=== PATIENT | male | born 1985 | race Caucasian/White ===

== ENCOUNTER 2016-10-23 11:22 | Emergency (ER) | payer SELFPAY ==
[2016-10-23] MEDS ORDERED: 0.9 % SODIUM CHLORIDE 1,000 ML BAG IV ONE (11:46)
[2016-10-23 12:03] LABS: BASO % 0.9 % (0-6); EOS % 9.2 % (0-6); GRAN % 64.7 % (47-80); HEMATOCRIT 43.9 % (42.0-52.0); HEMOGLOBIN 15.3 gm/dl (14.0-18.0); LYMPH % 14.6 % (16-45); MEAN CELL VOLUME 85.7 fl (81-97); MEAN CORPUSCULAR HEMOGLOBIN 29.9 pg (27-33); MEAN CORPUSCULAR HGB CONC 34.9 g/dl (32-36); MEAN PLATELET VOLUME 10.2 fl (7.4-10.4); MONO % 10.6 % (0-9); PLATELET COUNT 264 K/uL (130-400); RED BLOOD COUNT 5.12 M/uL (4.40-5.70); RED CELL DISTRIBUTION WIDTH 12.6 % (11.5-14.5); WHITE BLOOD COUNT W/O DIFF 9.2 K/uL (4.2-12.2)
--- NOTE | 2016-10-23 12:04 | Emergency Department Record ---
History of Present Illness - General Chief Complaint: Passed out Stated Complaint: PASSED OUT Time Seen by Provider: 10/23/16 11:45 Source: Patient, Family Mode of Arrival: Ambulatory Limitations: No limitations - History of Present Illness Initial Comments: 31 yo male presents with an episode of passing out. He was getting up to answer the phone, jumped up fast and passed out. The event was witnessed by his girlfriend. No seizure activity. He recalls feeling like he was going to pass out just prior to the event. No incontinence. He hit the back of his head and now has a mild headache. He has passed out 2 times in the past. 8 years ago and 5 years ago. Both times then he passed out after getting up fast. He has a remote history of head injury at age 12. No seizure history. He was out late and had some alcohol last night but he does not believe it was excessive. No drugs. MD Complaint: [place] faint, Loss of consciousness Onset/Timin -: Hour(s) Prodromal Symptoms: Lightheaded Duration of Episode: 2 -: Minutes(s) Injuries Sustained Associated with Event: Head Current Symptoms: Headache - [place] Scale Eye Response: (4) Open spontaneously Motor Response: (6) Obeys commands Verbal Response: (5) Oriented [place] Total: 15 - Symptoms of Stroke Baseline State: Baseline State - Related Data Home Medications Medication Instructions Recorded Confirmed Last Taken No Home Med [NO HOME MEDS] 10/23/16 10/23/16 Unknown Allergies Allergy/AdvReac Type Severity Reaction Status Date / Time No Known Drug Allergies Allergy Verified 10/23/16 11:47 Travel Screening - Travel/Exposure Within Last 30 Days Have you traveled within the last 30 days?: No - Travel/Exposure Within Last Year Have you traveled outside the [place] in the last year?: No - Additonal Travel Details Have you been exposed to anyone with a communicable illness?: No - Travel Symptoms Symptom Screening: None Review of Systems Constitutional: Denies: Chills, Fever, Malaise, Night sweats, Weakness Eyes: Denies: Eye discharge, Eye pain, Photophobia, Vision change ENT: Denies: Congestion, Throat pain Respiratory: Denies: Cough Cardiovascular: Denies: Chest pain, Palpitations, Syncope Endocrine: Denies: Fatigue Gastrointestinal: Denies: Abdominal pain, Diarrhea, Nausea, Vomiting Genitourinary: Denies: Dysuria, Frequency, Hematuria Musculoskeletal: Denies: Arthralgia, Back pain, Joint swelling, Myalgia Skin: Denies: Bruising, Change in color Neurological: Reports: Headache (mild since event - fell and hit the back of hit head), Tremors. Denies: Abnormal gait, Confusion, Numbness, Paresthesias, Seizure, Tingling, Vertigo, Weakness Psychiatric: Denies: Anxiety Hematological/Lymphatic: Denies: Anemia, Blood Clots, Easy bleeding, Easy bruising Past Medical History - SOCIAL HISTORY Smoking Status: Never smoker Alcohol Use: Occassional Drug Use: None Drug Use Detail:: Marijuana - RESPIRATORY Hx Respiratory Disorders: No - CARDIOVASCULAR Hx Cardio Disorders: No - NEURO Comment:: TBI with associated surgery - GI Hx GI Disorders: No - Hx Genitourinary Disorders: No - ENDOCRINE Hx Endocrine Disorders: No - MUSCULOSKELETAL Hx Musculoskeletal Disorders: No - PSYCH Hx Psych Problems: No - HEMATOLOGY/ONCOLOGY Hx Hematology/Oncology Disorders: No Family Medical History Any Significant Family History?: Yes Family Hx Comment (NOT TO BE USED IN PLACE OF ITEMS BELOW): none Physical Exam - General General Appearance: Alert, Oriented x3, Cooperative, No acute distress Limitations: No limitations - Head Head exam: Atraumatic, Normocephalic, Normal inspection - Eye Eye exam: Normal appearance, PERRL, EOMI. negative: Conjunctival injection, Nystagmus, Periorbital swelling - ENT ENT exam: Normal exam, Mucous membranes moist Ear exam: Normal external inspection Nasal Exam: Normal inspection Mouth exam: Normal external inspection Teeth exam: Normal inspection Throat exam: Normal inspection - Neck Neck exam: Normal inspection, Full ROM. negative: Tenderness - Respiratory Respiratory exam: Normal lung sounds bilaterally. negative: Respiratory distress - Cardiovascular Cardiovascular Exam: Regular rate, Normal rhythm, Normal heart sounds - GI/Abdominal GI/Abdominal exam: Soft. negative: Distended, Guarding, Rigid, Tenderness - Rectal Rectal exam: Deferred - exam: Deferred - Extremities Extremities exam: Normal inspection, Full ROM, Normal capillary refill. negative: Calf tenderness, Joint swelling, Pedal edema, Tenderness - Back Back exam: Reports: Normal inspection, Full ROM. Denies: CVA tenderness (R), CVA tenderness (L), Muscle spasm, Paraspinal tenderness, Rash noted, Tenderness - Neurological Neurological exam: Alert, CN II-XII intact, Normal gait, Oriented X3, Reflexes normal. negative: Altered, Motor sensory deficit - Psychiatric Psychiatric exam: Anxious, Normal affect, Normal mood. negative: Agitated - Skin Skin exam: Dry, Intact, Normal color, Warm Course Vital Signs 10/23/16 11:35 Temperature 97.6 F Pulse Rate 70 Respiratory 16 Rate Blood Pressure 113/68 Pulse Ox 100 - Reevaluation(s) Reevaluation #1: EKG NSR RATE 68, Intervals normal, [place] normal, artifact at baseline from shaking, ST no acute changes. 10/23/16 12:04 Reevaluation #2: No acute changes on the CBC,CMP,Magnesium,alcohol The patient is feeling much improved as well HCT pending 10/23/16 12:49 HCT was negative for acute process. 10/23/16 13:06 Medical Decision Making - Lab Data Result diagrams: 10/23/16 11:40 10/23/16 11:40 Disposition Disposition: Discharge Clinical Impression: Syncope Qualifiers: Syncope type: unspecified Qualified Code(s): R55 - Syncope and collapse Disposition: Home, Self-Care Condition: (1) Good Instructions: Syncope (ED) Additional Instructions: Rest and stay well hydrated today Return if you have any recurrent similar episodes Call Monday for contact information for a new doctor Referrals: BUFFY SANDOVAL M.D. [MEDICAL DOCTOR] - Forms: Patient Portal Access Time of Disposition: 13:06
[2016-10-23 12:17] LABS: ALB/GLOB RATIO 1.6 (1.1-1.8); ALBUMIN 4.4 gm/dL (3.5-5.0); ALKALINE PHOSPHATASE 72 U/L (38-126); ALT/SGPT 39 U/L (21-72); ANION GAP 10.4 (7-16); AST/SGOT 28 U/L (17-59); BILIRUBIN,TOTAL 0.56 mg/dL (0.2-1.3); BLOOD UREA NITROGEN 14 mg/dL (9-20); CARBON DIOXIDE 29.6 mmol/L (22-30); CREATININE 0.9 mg/dL (0.66-1.25); EST GLOMERULAR FILTRATION RATE > 60 ml/min; GLUCOSE,RANDOM 98 mg/dL (70-110); TOTAL PROTEIN 7.1 gm/dL (6.3-8.2)
[2016-10-23] MEDS ORDERED: 0.9 % SODIUM CHLORIDE 1000ML 1,000 ML IV ONE (12:47)
--- NOTE | 2016-10-27 10:29 | CT SCAN REPORT ---
EXAM: HEAD CT HISTORY: SYNCOPE. TECHNIQUE: Noncontrast head CT was obtained. Comparison: None. FINDINGS: The ventricles and subarachnoid spaces are unremarkable. No mass or mass effect. No intra or extraaxial hemorrhage seen. No CT evidence for a large acute territorial infarct. There is an old craniotomy defect in the right parietal region. IMPRESSION: 1. 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 2. NO MASS, HEMORRHAGE, OR ACUTE INTRACRANIAL PROCESS IDENTIFIED. JOB NUMBER: [id number] [facility]
== END 2016-10-23 13:14 | disposition home or self-care (01) ==
LOC: ER 11:22
DX: R55 Syncope and collapse (principal); R51 Headache
CPT/HCPCS: 83735; 85025; 80053; 70450; 93005; 93010; G0480; 80320; 96360; 99284; J7030